=== PATIENT | female | born 1945 | race Caucasian/White ===

== ENCOUNTER 2021-03-30 12:37 | Emergency (ER) | payer MEDICARE ==
[2021-03-30 14:59] LABS: HEMOGLOBIN 13.6 gm/dl (12.3-15.3); RED BLOOD COUNT 4.32 M/UL (4.00-5.10); WHITE BLOOD COUNT 4.7 K/UL (4.5-11.0)
[2021-03-30 15:18] LABS: BUN/CREATININE RATIO 12 (0-10)
[2021-03-30] MEDS ORDERED: ZOFRAN ODT 4 MG4 MG SL (18:43)
[2021-03-30] MEDS ORDERED: [UNRECOGNIZED DRUG - OTHER] PO (18:44)
== END 2021-03-30 19:00 | disposition home or self-care (01) ==
LOC: ER1 12:37
PROVIDERS: Physician Assistant Medical
DX: U07.1 COVID-19 (principal)
CPT/HCPCS: 71045; 80053; 84484; 85025; 93005; 96374; 99284; J2405; J7030